=== PATIENT | female | born 1980 | race Caucasian/White ===

== ENCOUNTER 2022-05-27 19:25 | Emergency (ER) | payer BC ==
[~2022-05-27] VITALS: Ht 167.6 cm; Wt 115.9 kg
[2022-05-27 20:10] VITALS: BP 174/112
== END 2022-05-27 22:20 | disposition left against medical advice (07) ==
LOC: M ED 19:25
DX: Z53.21 Procedure and treatment not carried out due to patient leaving prior to being seen by health care provider (principal)